=== PATIENT | male | born 1980 | race African-American/Black ===

== ENCOUNTER 2018-03-26 13:24 | Emergency (ER) | payer BC, OTHER ==
[2018-03-26] MEDS ORDERED: Ketorolac 30 MG/ML SDV IVPUSH ONE (13:30)
[2018-03-26] MEDS ORDERED: Sodium Chloride 0.9% 1,000 ML IV ONE (13:30)
[2018-03-26] MEDS ORDERED: Ondansetron 4 MG/2 ML SDV IVPUSH ONE (13:30)
--- NOTE | 2018-03-26 13:41 | EDM.PDOC ---
ED HPI GENERAL MEDICAL PROBLEM - General Chief Complaint: Abdominal Pain Stated Complaint: STOMACH PAIN Time Seen by Provider: 03/26/18 13:29 Source of Information: Reports: Patient History Limitations: Reports: No Limitations - History of Present Illness INITIAL COMMENTS - FREE TEXT/NARRATIVE: HISTORY AND PHYSICAL: History of present illness: Patient is a 37-year-old male who presents to the emergency room with complaints of pelvic pain. He states that for approximately one week he has had pain to the "bladder" and has discomfort while urinating. He denies any fever, chills, chest pain, shortness of breath or cough. Denies any nausea, vomiting, diarrhea or constipation. He denies any penile drainage, lesions or testicular erythema swelling. Review of systems: As per history of present illness and below otherwise all systems reviewed and negative. Past medical history: As per history of present illness and as reviewed below otherwise noncontributory. Surgical history: As per history of present illness and as reviewed below otherwise noncontributory. Social history: No reported history of drug or alcohol abuse. Family history: As per history of present illness and as reviewed below otherwise noncontributory. Physical exam: General: Well-developed and well-nourished 37-year-old male. Alert and oriented. Nontoxic appearing and in no acute distress. HEENT: Atraumatic, normocephalic, pupils equal and reactive bilaterally, negative for conjunctival pallor or scleral icterus, mucous membranes moist, throat clear, neck supple, nontender, trachea midline. No drooling or trismus noted. No meningeal signs Lungs: Clear to auscultation, breath sounds equal bilaterally, chest nontender. Heart: S1S2, regular rate and rhythm without overt murmur Abdomen: Soft, nondistended, nontender. Negative for masses or hepatosplenomegaly. Negative for costovertebral tenderness. Pelvis: Stable nontender. Genitourinary: Deferred. Rectal: Deferred. Skin: Intact, warm, dry. No lesions or rashes noted. Extremities: Atraumatic, negative for cords or calf pain. Neurovascular unremarkable. Neuro: Awake, alert, oriented. Cranial nerves II through XII unremarkable. Cerebellum unremarkable. Motor and sensory unremarkable throughout. Exam nonfocal. Notes: When asked patient if he was concerned of any STDs, he said the chance is very low and he was not overly concerned. He is agreeable to doing a urinalysis with gonorrhea and chlamydia testing. Routine lab work will be check this time as well. Labs are unremarkable. The gonorrhea and chlamydia are send outs results are not available at this time. I will treat him prophylactically with Rocephin and azithromycin. Supportive care measures were reviewed and discussed. He voices understanding and is agreeable to plan of care. Denies any further questions at this time. Diagnostics: CBC, CMP, UA, gonorrhea/chlamydia Therapeutics: Rocephin, Azithromycin Impression: Pelvic pain Plan: 1. Please increase your oral fluids. 2. Have protected sex until you receive your urine culture back. 3. Follow-up with your primary caregiver in the next week. Return to the ED as needed and as discussed. Definitive disposition and diagnosis as appropriate pending reevaluation and review of above. Duration: Day(s): Location: Reports: Pelvis abdomen Pain Score (Numeric/FACES): 5 - Related Data Allergies Allergy/AdvReac Type Severity Reaction Status Date / Time No Known Allergies Allergy Verified 03/26/18 13:51 Home Meds: Home Meds . [Unable to Verify Home Med List] 03/26/18 [History] ED ROS GENERAL - Review of Systems Review Of Systems: ROS reveals no pertinent complaints other than HPI. ED EXAM, RENAL/ - Physical Exam Exam: See Below (See dictation) Course - Vital Signs Last Recorded V/S: Last Vital Signs Temp 98.3 F 03/26/18 13:51 Pulse 68 03/26/18 13:51 Resp 18 03/26/18 13:51 BP 138/98 H 03/26/18 13:51 Pulse Ox 97 03/26/18 13:51 - Orders/Labs/Meds Orders: Active Orders 24 hr Category Date Time Status CHLAMYDIA AND GONORRHEA BY TMA Stat Lab 03/26/18 13:45 Received COMPREHENSIVE METABOLIC PN,CMP [CHEM] Stat Lab 03/26/18 14:05 Received UA W/MICROSCOPIC [URIN] Stat Lab 03/26/18 13:50 Ordered Labs: Laboratory Tests 03/26/18 03/26/18 Range/Units 13:50 14:05 WBC 6.65 (4.0-11.0) K/uL RBC 5.37 (4.50-5.90) M/uL Hgb 15.7 (13.0-17.0) g/dL Hct 46.6 (38.0-50.0) % MCV 86.8 (80.0-98.0) fL MCH 29.2 (27.0-32.0) pg MCHC 33.7 (31.0-37.0) g/dL RDW Std Deviation 39.9 (28.0-62.0) fl RDW Coeff of Jose Manuel 13 (11.0-15.0) % Plt Count 212 (150-400) K/uL MPV 9.80 (7.40-12.00) fL Neut % (Auto) 55.6 (48.0-80.0) % Lymph % (Auto) 34.7 (16.0-40.0) % [place] % (Auto) 7.2 (0.0-15.0) % Eos % (Auto) 2.3 (0.0-7.0) % Baso % (Auto) 0.2 (0.0-1.5) % Neut # (Auto) 3.7 (1.4-5.7) K/uL Lymph # (Auto) 2.3 (0.6-2.4) K/uL [place] # (Auto) 0.5 (0.0-0.8) K/uL Eos # (Auto) 0.2 (0.0-0.7) K/uL Baso # (Auto) 0.0 (0.0-0.1) K/uL Nucleated RBC % 0.0 /100WBC Nucleated RBCs # 0 K/uL Urine Color YELLOW Urine Appearance CLEAR Urine pH 6.0 (5.0-8.0) Ur Specific [place] 1.025 (1.001-1.035) Urine Protein NEGATIVE (NEGATIVE) mg/dL Urine Glucose (UA) NEGATIVE (NEGATIVE) mg/dL Urine Ketones NEGATIVE (NEGATIVE) mg/dL Urine Occult Blood NEGATIVE (NEGATIVE) Urine Nitrite NEGATIVE (NEGATIVE) Urine Bilirubin NEGATIVE (NEGATIVE) Urine Urobilinogen 0.2 (<2.0) EU/dL Ur Leukocyte Esterase NEGATIVE (NEGATIVE) Urine RBC NONE SEEN (0-2/HPF) Urine WBC 0-1 (0-5/HPF) Ur Epithelial Cells RARE (NONE-FEW) Amorphous Sediment RARE (NEGATIVE) Urine Bacteria RARE (NEGATIVE) Meds: Medications Discontinued Medications Generic Name Dose Route Start Last Admin Trade Name Yee PRN Reason Stop Dose Admin Azithromycin 1,000 mg 03/26/18 14:20 Zithromax PO 03/26/18 14:21 NOW STA Sodium Chloride 1,000 mls @ 999 mls/hr 03/26/18 13:30 Normal Saline IV 03/26/18 14:30 STAT ONE Ceftriaxone Sodium 250 mg/ 0.9 mls @ 0.9 mls/sec 03/26/18 14:20 Lidocaine HCl IM 03/26/18 14:21 ONETIME ONE Ketorolac Tromethamine 30 mg 03/26/18 13:30 Toradol IVPUSH 03/26/18 13:31 ONETIME ONE Ondansetron HCl 4 mg 03/26/18 13:30 Zofran IVPUSH 03/26/18 13:31 ONETIME ONE Departure - Departure Time of Disposition: 14:36 Disposition: Home, Self-Care 01 Clinical Impression: Pelvic pain in male - Discharge Information Instructions: Pelvic Pain, Male Referrals: PCP,None [Primary Care Provider] - Forms: ED Department Discharge Additional Instructions: The following information is given to patients seen in the emergency department who are being discharged to home. This information is to outline your options for follow-up care. We provide all patients seen in our emergency department with a follow-up referral. The need for follow-up, as well as the timing and circumstances, are variable depending upon the specifics of your emergency department visit. If you don't have a primary care physician on staff, we will provide you with a referral. We always advise you to contact your personal physician following an emergency department visit to inform them of the circumstance of the visit and for follow-up with them and/or the need for any referrals to a consulting specialist. The emergency department will also refer you to a specialist when appropriate. This referral assures that you have the opportunity for follow-up care with a specialist. All of these measure are taken in an effort to provide you with optimal care, which includes your follow-up. Under all circumstances we always encourage you to contact your private physician who remains a resource for coordinating your care. When calling for follow-up care, please make the office aware that this follow-up is from your recent emergency room visit. If for any reason you are refused follow-up, please contact the [facility] Emergency Department at and asked to speak to the emergency department charge nurse. [facility] [address] [place] [id number] 1. Please increase your oral fluids. 2. Have protected sex until you receive your urine culture back. 3. Follow-up with your primary caregiver in the next week. Return to the ED as needed and as discussed. - My Orders Last 24 Hours: My Active Orders 03/26/18 13:45 CHLAMYDIA AND GONORRHEA BY TMA Stat 03/26/18 13:50 UA W/MICROSCOPIC [URIN] Stat 03/26/18 14:05 COMPREHENSIVE METABOLIC PN,CMP [CHEM] Stat - Assessment/Plan Last 24 Hours: My Active Orders 03/26/18 13:45 CHLAMYDIA AND GONORRHEA BY TMA Stat 03/26/18 13:50 UA W/MICROSCOPIC [URIN] Stat 03/26/18 14:05 COMPREHENSIVE METABOLIC PN,CMP [CHEM] Stat
[2018-03-26] MEDS ORDERED: Azithromycin 250 MG Tab PO STA (14:20)
[2018-03-26] MEDS ORDERED: cefTRIAXone 250 MG in Lidocaine 1% 0.9 ML IM ONE (14:20)
[2018-03-26 14:41] LABS: CHLORIDE,CL 106 mmol/L (98-107); SODIUM,NA 140 mmol/L (136-148)
== END 2018-03-26 15:17 | disposition home or self-care (01) ==
LOC: MW.ED 13:24
DX: R10.2 Pelvic and perineal pain (principal)
CPT/HCPCS: 36415; 80053; 81001; 85025; 87491; 87591; 96372; 99283; A9270; J0696

== ENCOUNTER 2018-04-24 07:06 | Emergency (ER) | payer BC ==
--- NOTE | 2018-04-24 08:07 | EDM.PDOC ---
ED HPI GENERAL MEDICAL PROBLEM - General Chief Complaint: ENT Problem Stated Complaint: LEFT EYE INFECTION; BACK PAIN Time Seen by Provider: 04/24/18 08:07 - History of Present Illness INITIAL COMMENTS - FREE TEXT/NARRATIVE: HISTORY AND PHYSICAL: History of present illness: Patient 37-year-old male presents with concern of low back pain states he injured this when he did some lifting he has seen a chiropractor with no significant improvement he denies numbness weakness incontinence or retention follow-up bladder Review of systems: As per history of present illness and below otherwise all systems reviewed and negative. Past medical history: As per history of present illness and as reviewed below otherwise noncontributory. Surgical history: As per history of present illness and as reviewed below otherwise noncontributory. Social history: No reported history of drug or alcohol abuse. Family history: As per history of present illness and as reviewed below otherwise noncontributory. Physical exam: HEENT: Atraumatic, normocephalic, pupils reactive, negative for conjunctival pallor or scleral icterus, mucous membranes moist, throat clear, neck supple, nontender, trachea midline. Lungs: Clear to auscultation, breath sounds equal bilaterally, chest nontender. Heart: S1S2, regular, negative for clicks, rubs, or JVD. Abdomen: Soft, nondistended, nontender. Negative for masses or hepatosplenomegaly. Negative for costovertebral tenderness. Pelvis: Stable nontender. Genitourinary: Deferred. Rectal: Deferred. Extremities: Atraumatic, negative for cords or calf pain. Neurovascular unremarkable. Neuro: Awake, alert, oriented. Cranial nerves II through XII unremarkable. Cerebellum unremarkable. Motor and sensory unremarkable throughout. Exam nonfocal. Back: Patient has mild paravertebral tenderness at the level lumbar spine no vertebral body or point tenderness patient is able to stand up on his toes back on his heels motor and sensory normal Diagnostics: None Therapeutics: None Impression: #1 lumbosacral strain Definitive disposition and diagnosis as appropriate pending reevaluation and review of above. Lower Back Pain Score (Numeric/FACES): 5 - Related Data Allergies Allergy/AdvReac Type Severity Reaction Status Date / Time No Known Allergies Allergy Verified 04/24/18 08:01 Home Meds: Home Meds . [No Known Home Meds] 04/24/18 [History] Past Medical History - Past Health History Medical/Surgical History: Denies Medical/Surgical History - Infectious Disease History Infectious Disease History: Reports: Hepatitis C Social & Family History - Family History Family Medical History: Noncontributory - Caffeine Use Caffeine Use: Reports: Coffee, Energy Drinks ED ROS GENERAL - Review of Systems Review Of Systems: ROS reveals no pertinent complaints other than HPI. ED EXAM, GENERAL - Physical Exam Exam: See Below (See dictation) Departure - Departure Time of Disposition: 08:06 Disposition: Home, Self-Care 01 Condition: Good Clinical Impression: Lumbosacral strain - Discharge Information Referrals: PCP,None [Primary Care Provider] - Additional Instructions: The following information is given to patients seen in the emergency department who are being discharged to home. This information is to outline your options for follow-up care. We provide all patients seen in our emergency department with a follow-up referral. The need for follow-up, as well as the timing and circumstances, are variable depending upon the specifics of your emergency department visit. If you don't have a primary care physician on staff, we will provide you with a referral. We always advise you to contact your personal physician following an emergency department visit to inform them of the circumstance of the visit and for follow-up with them and/or the need for any referrals to a consulting specialist. The emergency department will also refer you to a specialist when appropriate. This referral assures that you have the opportunity for followup care with a specialist. All of these measure are taken in an effort to provide you with optimal care, which includes your followup. Under all circumstances we always encourage you to contact your private physician who remains a resource for coordinating your care. When calling for followup care, please make the office aware that this follow-up is from your recent emergency room visit. If for any reason you are refused follow-up, please contact the [facility] emergency department at and asked to speak to the emergency department charge nurse. [facility] [address] [place] [id number] Anaprox and Robaxin Medrol as prescribed and follow-up with clinic called to schedule appointment return as needed as discussed
== END 2018-04-24 08:28 | disposition home or self-care (01) ==
LOC: MW.ED 07:06
DX: S39.012A Strain of muscle, fascia and tendon of lower back, initial encounter (principal); X58.XXXA Exposure to other specified factors, initial encounter
CPT/HCPCS: 99282; 99283

== ENCOUNTER 2018-12-29 17:17 | Emergency (ER) | payer BC ==
[2018-12-29] MEDS ORDERED: cefTRIAXone 250 MG in Lidocaine 1% 1 ML IM ONE (17:25)
[2018-12-29] MEDS ORDERED: Azithromycin 250 MG Tab PO ONE (17:26)
--- NOTE | 2018-12-29 17:29 | EDM.PDOC ---
ED HPI GENERAL MEDICAL PROBLEM - General Chief Complaint: Genitourinary Problem Stated Complaint: UTI Time Seen by Provider: 12/29/18 17:22 - History of Present Illness INITIAL COMMENTS - FREE TEXT/NARRATIVE: HISTORY AND PHYSICAL: History of present illness: Patient is a 38-year-old male presents with concern of dysuria and possible STD he states he has had unprotected sex he denies urethral discharge he states there is burning with urination 1 week. Genital lesions Review of systems: As per history of present illness and below otherwise all systems reviewed and negative. Past medical history: As per history of present illness and as reviewed below otherwise noncontributory. Surgical history: As per history of present illness and as reviewed below otherwise noncontributory. Social history: No reported history of drug or alcohol abuse. Family history: As per history of present illness and as reviewed below otherwise noncontributory. Physical exam: HEENT: Atraumatic, normocephalic, pupils reactive, negative for conjunctival pallor or scleral icterus, mucous membranes moist, throat clear, neck supple, nontender, trachea midline. Lungs: Clear to auscultation, breath sounds equal bilaterally, chest nontender. Heart: S1S2, regular, negative for clicks, rubs, or JVD. Abdomen: Soft, nondistended, nontender. Negative for masses or hepatosplenomegaly. Negative for costovertebral tenderness. Pelvis: Stable nontender. Genitourinary: Deferred. Rectal: Deferred. Extremities: Atraumatic, negative for cords or calf pain. Neurovascular unremarkable. Neuro: Awake, alert, oriented. Cranial nerves II through XII unremarkable. Cerebellum unremarkable. Motor and sensory unremarkable throughout. Exam nonfocal. Diagnostics: UA urine culture and sensitivity urine for GC and Chlamydia Therapeutics: Rocephin 250 mg IM and azithromycin 1 g by mouth Impression: #1 urethritis Definitive disposition and diagnosis as appropriate pending reevaluation and review of above. - Related Data Allergies Allergy/AdvReac Type Severity Reaction Status Date / Time No Known Allergies Allergy Verified 12/29/18 17:26 Home Meds: Home Meds . [No Known Home Meds] 04/24/18 [History] Past Medical History - Past Health History Medical/Surgical History: Denies Medical/Surgical History - Infectious Disease History Infectious Disease History: Reports: Hepatitis C Social & Family History - Family History Family Medical History: Noncontributory - Caffeine Use Caffeine Use: Reports: Coffee, Energy Drinks ED ROS GENERAL - Review of Systems Review Of Systems: ROS reveals no pertinent complaints other than HPI. ED EXAM, GENERAL - Physical Exam Exam: See Below (See dictation) Course - Vital Signs Last Recorded V/S: Last Vital Signs Temp 36.6 C 12/29/18 17:23 Pulse 77 12/29/18 17:23 Resp 18 12/29/18 17:23 BP 153/89 H 12/29/18 17:23 Pulse Ox 95 12/29/18 17:23 - Orders/Labs/Meds Orders: Active Orders 24 hr Category Date Time Status CHLAMYDIA AND GONORRHEA BY TMA Stat Lab 12/29/18 17:23 Ordered CULTURE URINE [RM] Stat Lab 12/29/18 17:23 Ordered UA W/KHADIJAH RFLX IF INDICATED [URIN] Stat Lab 12/29/18 17:23 Ordered Meds: Medications Discontinued Medications Generic Name Dose Route Start Last Admin Trade Name Freq PRN Reason Stop Dose Admin Azithromycin 1,000 mg 12/29/18 17:26 Zithromax PO 12/29/18 17:27 Q24H ONE Ceftriaxone Sodium 250 mg/ 1 mls @ 1 mls/sec 12/29/18 17:25 Lidocaine HCl IM 12/29/18 17:26 ONETIME ONE Departure - Departure Time of Disposition: 17:28 Disposition: Home, Self-Care 01 Condition: Good Clinical Impression: Urethritis - Discharge Information Referrals: PCP,Unknown [Primary Care Provider] - Additional Instructions: The following information is given to patients seen in the emergency department who are being discharged to home. This information is to outline your options for follow-up care. We provide all patients seen in our emergency department with a follow-up referral. The need for follow-up, as well as the timing and circumstances, are variable depending upon the specifics of your emergency department visit. If you don't have a primary care physician on staff, we will provide you with a referral. We always advise you to contact your personal physician following an emergency department visit to inform them of the circumstance of the visit and for follow-up with them and/or the need for any referrals to a consulting specialist. The emergency department will also refer you to a specialist when appropriate. This referral assures that you have the opportunity for followup care with a specialist. All of these measure are taken in an effort to provide you with optimal care, which includes your followup. Under all circumstances we always encourage you to contact your private physician who remains a resource for coordinating your care. When calling for followup care, please make the office aware that this follow-up is from your recent emergency room visit. If for any reason you are refused follow-up, please contact the [facility] emergency department at and asked to speak to the emergency department charge nurse. [facility] [address] [place] [id number] Follow-up primary medical doctor and/or primary care above as needed as discussed all partner should be screened as discussed safe sex practices as discussed return as needed as discussed - My Orders Last 24 Hours: My Active Orders 12/29/18 17:23 CHLAMYDIA AND GONORRHEA BY TMA Stat CULTURE URINE [RM] Stat UA W/KHADIJAH RFLX IF INDICATED [URIN] Stat - Assessment/Plan Last 24 Hours: My Active Orders 12/29/18 17:23 CHLAMYDIA AND GONORRHEA BY TMA Stat CULTURE URINE [RM] Stat UA W/KHADIJAH RFLX IF INDICATED [URIN] Stat
== END 2018-12-29 18:05 | disposition home or self-care (01) ==
LOC: MW.ED 17:17
DX: N34.2 Other urethritis (principal)
CPT/HCPCS: 81003; 87086; 96372; 99283; A9270; J0696; J2001; 87491; 87591